=== PATIENT | female | born 1990 | race Two or more races ===

== ENCOUNTER 2023-12-20 01:57 | Emergency (ER) | payer MEDICAID, OTHER ==
[~2023-12-20] VITALS: Ht 165.1 cm; Wt 62.6 kg
[2023-12-20] MEDS ORDERED: KETOROLAC TROMETHAMINE 15 MG/ML VIAL IV ONE (03:00)
[2023-12-20] MEDS ORDERED: ONDANSETRON HCL/PF 4 MG/2 ML VIAL IVP ONE (03:00)
[2023-12-20] MEDS ORDERED: IV NS 0.9% 1,000 ML BAG IV ONE (03:00)
[2023-12-20 03:04] VITALS: BP 110/68; TEMP 97.7; O2SAT 100
== END 2023-12-20 03:05 | disposition left against medical advice (07) ==
LOC: ER 02:06
DX: R10.11 Right upper quadrant pain (principal); R10.13 Epigastric pain